=== PATIENT | male | born 1955 | race Caucasian/White ===

== ENCOUNTER 2018-09-25 22:30 | Emergency (ER) | payer OTHER ==
[~2018-09-25] VITALS: Ht 180.3 cm; Wt 93.0 kg
[2018-09-25 22:47] VITALS: Ht 180.3 cm; Wt 93.0 kg
[2018-09-25 23:52] VITALS: BP 162/115
== END 2018-09-25 23:52 | disposition home or self-care (01) ==
LOC: ED 22:30
DX: R04.0 Epistaxis (principal)

== ENCOUNTER 2018-09-27 15:47 | Emergency (ER) | payer OTHER ==
[~2018-09-27] VITALS: Ht 180.3 cm; Wt 90.3 kg
[2018-09-27 16:05] VITALS: Ht 180.3 cm; Wt 90.3 kg
[2018-09-27 18:21] VITALS: BP 139/102
== END 2018-09-27 18:21 | disposition home or self-care (01) ==
LOC: ED 15:47
DX: K12.2 Cellulitis and abscess of mouth (principal); F15.90 Other stimulant use, unspecified, uncomplicated; Z90.89 Acquired absence of other organs